=== PATIENT | male | born 1945 | race African-American/Black ===

== ENCOUNTER 2020-11-08 14:03 | Inpatient (IN) | payer MEDICARE ==
[2020-11-08 15:07] LABS: Hemoglobin 9.3 g/dL (13.5-17.5); Mean Corpuscular HGB CONC 31.8 g/dL (32.0-36.0); Mean Corpuscular Hemoglobin 29.2 pg (27.0-33.0); Mean Corpuscular Volume 91.8 fl (81.2-95.1); Mean Platelet Volume 8.9 fl (7.4-10.4); Platelet Count 282 10x3/uL (150-450); RBC Distribution Width 12.4 % (11.5-14.5); Red Blood Cell (RBC) Count 3.18 10x6/uL (4.32-5.72); White Blood Cell (WBC) Count 8.9 10x3/uL (3.5-10.5)
[2020-11-08 15:49] LABS: ALT (SGPT) 74 U/L (8-55); AST (SGOT) 53 U/L (5-34); Albumin 3.3 g/dL (3.4-4.8); Alkaline Phosphatase 75 U/L (40-110); Anion Gap 14 mmol/L (10-20); BUN (Urea Nitrogen) 35 mg/dL (8.4-25.7); Bilirubin, Total 0.3 mg/dL (0.2-1.2); CK (CPK) 597 U/L (30-200); Calc. Creatinine Clearance 0 mL/min (70-130); Calcium 8.7 mg/dL (7.8-10.44); Carbon Dioxide 23 mmol/L (23-31); Chloride 104 mmol/L (98-107); Globulin 3.6 g/dL (2.4-3.5); Glucose 113 mg/dL (83-110); Potassium 4.1 mmol/L (3.5-5.1); Protein, Total 6.9 g/dL (5.8-8.1); Sodium 137 mmol/L (136-145)
[2020-11-08 15:53] LABS: Bilirubin Neg (Negative); Blood, Urine 10 (Negative); Clarity Slightly Cloudy (Clear); Glucose, Urine (Dipstick) Normal (Negative); Ketone, Urine Negative (Negative); Leukocyte 100 (Negative); Nitrite Negative (Negative); Protein, Urine (Dipstick) 15 mg/dl (Neg-Trace); Specific Gravity, Urine 1.015 (1.002-1.036); Urobilinogen Normal mg/dL (Less than 2)
[2020-11-08 16:26] LABS: MDiff Complete? YES
[2020-11-08 16:38] LABS: Band 3 % (5-11); Lymphocytes 7 % (21-51); Monocytes 9 % (0-10); Neutrophil 80 % (42-75)
[2020-11-08 16:46] LABS: Bacteria/HPF 4+ HPF (None Seen); RBC/HPF 0-3 HPF (0-3); Squamous Epithelial 0-3 HPF (0-3)
[2020-11-08] MEDS ORDERED: cefTRIAXone\\ROCEPHIN 1 GM VIAL ONE (17:09)
[2020-11-08 17:18] LABS: Platelet Morphology Comment Appears Adequate
[2020-11-08 17:19] LABS: RBC Morphology Normal
[2020-11-08 18:07] LABS: Lactic Acid 1.3 mmol/L (0.5-2.2)
[2020-11-08] MEDS ORDERED: Ondansetron PF 4 MG/2 ML Vial IVP PRN (18:13)
[2020-11-08] MEDS ORDERED: Acetaminophen 325 MG TAB PO PRN (18:13)
[2020-11-08] MEDS ORDERED: Dextrose 5% in Water 1,000 ML IV PRN (18:15)
[2020-11-08] MEDS ORDERED: Dextrose 50% Abboject 50 ML SYRINGE SLOW IVP PRN (18:15)
[2020-11-08] MEDS ORDERED: Norepinephrine 8 MG/0.9% NS 250 ML ONE (18:56)
[2020-11-08 21:02] LABS: SARS-CoV-2 NAA Rapid Test Not Detected (NotDetected)
[2020-11-08] MEDS ORDERED: Furosemide 40 MG/4 ML VIAL ONE (21:03)
[2020-11-08] MEDS ORDERED: Vancomycin HCl 1.25 GM in Sodium Chloride 0.9% 250 ML 250 ML IVPB SCH (22:00)
[2020-11-08] MEDS ORDERED: Vancomycin HCl 500 MG VIAL ONE (22:20)
[2020-11-09] MEDS: Cefepime 1 GM in Sodium Chloride 0.9% 100 ML IVPB SCH ×2 (01:00→14:20)
[2020-11-09] MEDS: Sodium Chloride 0.9% 1,000 ML IV SCH ×5 (02:00→21:52)
[2020-11-09] MEDS ORDERED: Ziprasidone 20 MG VIAL IM SCH (04:45)
[2020-11-09 04:50] LABS: #Monocytes 0.7 10x3/uL (0.0-1.1); #Neutrophils 6.1 10x3/uL (1.5-8.4); %Basophils 0.5 % (0.0-2.0); %Eosinophils 0.3 % (0.0-6.0); %Lymphocytes 13.3 % (18.0-47.0); %Monocytes 8.9 % (0.0-10.0); %Neutrophils 76.7 % (40.0-75.0); Hemoglobin 9.2 g/dL (13.5-17.5); Mean Corpuscular HGB CONC 32.5 g/dL (32.0-36.0); Mean Corpuscular Hemoglobin 30.1 pg (27.0-33.0); Mean Corpuscular Volume 92.5 fl (81.2-95.1); Mean Platelet Volume 8.6 fl (7.4-10.4); Platelet Count 364 10x3/uL (150-450); RBC Distribution Width 12.4 % (11.5-14.5); Red Blood Cell (RBC) Count 3.06 10x6/uL (4.32-5.72); White Blood Cell (WBC) Count 7.9 10x3/uL (3.5-10.5)
[2020-11-09] MEDS ORDERED: Sterile Water 10 ML VIAL FS PRN (05:00)
[2020-11-09] MEDS ORDERED: Sterile Water 10 ML ONE (05:00)
[2020-11-09 05:06] LABS: ALT (SGPT) 104 U/L (8-55); AST (SGOT) 80 U/L (5-34); Albumin 3.3 g/dL (3.4-4.8); Alkaline Phosphatase 77 U/L (40-110); Anion Gap 15 mmol/L (10-20); BUN (Urea Nitrogen) 32 mg/dL (8.4-25.7); Bilirubin, Total 0.3 mg/dL (0.2-1.2); CK (CPK) 897 U/L (30-200); Calc. Creatinine Clearance 36 mL/min (70-130); Calcium 8.7 mg/dL (7.8-10.44); Carbon Dioxide 22 mmol/L (23-31); Chloride 106 mmol/L (98-107); Globulin 3.6 g/dL (2.4-3.5); Glucose 109 mg/dL (83-110); Potassium 4.1 mmol/L (3.5-5.1); Protein, Total 6.9 g/dL (5.8-8.1); Sodium 139 mmol/L (136-145)
[2020-11-10] MEDS: Cefepime 1 GM in Sodium Chloride 0.9% 100 ML IVPB SCH ×2 (01:55→12:15)
[2020-11-10] MEDS: Sodium Chloride 0.9% 1,000 ML IV SCH ×3 (04:50→22:03)
[2020-11-10] MEDS: Amiodarone 200 MG TAB PO SCH (22:03)
[2020-11-10] MEDS: Atorvastatin Calcium 40 MG TAB PO SCH (22:04)
[2020-11-10] MEDS: Brimonidine Tartrate 0.2% Ophth Soln 5 ml Bottle EA EYE SCH (22:04)
[2020-11-10] MEDS: Mirtazapine 15 MG TAB PO SCH (22:04)
[2020-11-10] MEDS: Timolol 0.5% Ophth Soln 5 ml Bottle EA EYE SCH (22:12)
[2020-11-11 05:26] LABS: #Neutrophils 8.5 10x3/uL (1.5-8.4); %Basophils 0.4 % (0.0-2.0); %Eosinophils 0.2 % (0.0-6.0); %Lymphocytes 10.9 % (18.0-47.0); %Monocytes 9.5 % (0.0-10.0); %Neutrophils 78.6 % (40.0-75.0); Hemoglobin 9.6 g/dL (13.5-17.5); Mean Corpuscular Hemoglobin 29.3 pg (27.0-33.0); Mean Corpuscular Volume 91.5 fl (81.2-95.1); Mean Platelet Volume 8.5 fl (7.4-10.4); Platelet Count 309 10x3/uL (150-450); RBC Distribution Width 12.2 % (11.5-14.5); Red Blood Cell (RBC) Count 3.28 10x6/uL (4.32-5.72); White Blood Cell (WBC) Count 10.8 10x3/uL (3.5-10.5)
[2020-11-11] MEDS: Sodium Chloride 0.9% 1,000 ML IV SCH ×4 (05:34→21:21)
[2020-11-11 05:43] LABS: ALT (SGPT) 102 U/L (8-55); AST (SGOT) 64 U/L (5-34); Alkaline Phosphatase 67 U/L (40-110); Anion Gap 13 mmol/L (10-20); BUN (Urea Nitrogen) 16 mg/dL (8.4-25.7); Bilirubin, Total 0.4 mg/dL (0.2-1.2); Calc. Creatinine Clearance 52 mL/min (70-130); Calcium 8.7 mg/dL (7.8-10.44); Carbon Dioxide 22 mmol/L (23-31); Chloride 110 mmol/L (98-107); Globulin 3.5 g/dL (2.4-3.5); Glucose 110 mg/dL (83-110); Potassium 3.8 mmol/L (3.5-5.1); Protein, Total 6.5 g/dL (5.8-8.1); Sodium 141 mmol/L (136-145)
[2020-11-11] MEDS: Brimonidine Tartrate 0.2% Ophth Soln 5 ml Bottle EA EYE SCH ×2 (08:30→21:22)
[2020-11-11] MEDS: Timolol 0.5% Ophth Soln 5 ml Bottle EA EYE SCH ×2 (08:31→20:37)
[2020-11-11] MEDS: Amiodarone 200 MG TAB PO SCH ×2 (08:42→20:36)
[2020-11-11] MEDS: OLANZapine 2.5 MG TAB PO SCH ×2 (08:42→20:37)
[2020-11-11] MEDS ORDERED: cefTRIAXone\\ROCEPHIN 1 GM in Sodium Chloride 0.9% 100 ML IVPB SCH (10:00)
[2020-11-11] MEDS: Acetaminophen 650 MG Suppository PR PRN (17:33)
[2020-11-11] MEDS: Rivaroxaban 10 MG TAB PO SCH (17:33)
[2020-11-11] MEDS: HumaLOG 300 UNITS/3 ML VIAL SC PRN (18:00)
[2020-11-11] MEDS ORDERED: Atorvastatin Calcium 40 MG TAB ONE (19:57)
[2020-11-11] MEDS: Mirtazapine 15 MG TAB PO SCH (20:35)
[2020-11-11] MEDS: Atorvastatin Calcium 40 MG TAB PO SCH (20:35)
[2020-11-12] MEDS ORDERED: hydrALAZINE 20 MG/ML VIAL SLOW IVP SCH (04:15)
[2020-11-12] MEDS: Sodium Chloride 0.9% 1,000 ML IV SCH (04:16)
[2020-11-12] MEDS: Acetaminophen 650 MG Suppository PR PRN (05:20)
[2020-11-12 05:54] LABS: #Monocytes 1.1 10x3/uL (0.0-1.1); #Neutrophils 12.1 10x3/uL (1.5-8.4); %Basophils 0.3 % (0.0-2.0); %Eosinophils 0.1 % (0.0-6.0); %Lymphocytes 8.2 % (18.0-47.0); %Monocytes 7.6 % (0.0-10.0); %Neutrophils 82.7 % (40.0-75.0); Hemoglobin 10.3 g/dL (13.5-17.5); Mean Corpuscular HGB CONC 32.5 g/dL (32.0-36.0); Mean Corpuscular Hemoglobin 29.4 pg (27.0-33.0); Mean Corpuscular Volume 90.6 fl (81.2-95.1); Mean Platelet Volume 9.6 fl (7.4-10.4); Platelet Count 253 10x3/uL (150-450); RBC Distribution Width 12.3 % (11.5-14.5); White Blood Cell (WBC) Count 14.6 10x3/uL (3.5-10.5)
[2020-11-12] MEDS: Amiodarone 200 MG TAB PO SCH ×2 (08:06→21:07)
[2020-11-12] MEDS: OLANZapine 2.5 MG TAB PO SCH ×2 (08:06→21:07)
[2020-11-12] MEDS: Brimonidine Tartrate 0.2% Ophth Soln 5 ml Bottle EA EYE SCH ×2 (08:07→21:05)
[2020-11-12] MEDS: Timolol 0.5% Ophth Soln 5 ml Bottle EA EYE SCH ×2 (08:07→21:06)
[2020-11-12] MEDS ORDERED: Haloperidol Lactate 5 MG/ML VIAL ONE (10:00)
[2020-11-12] MEDS ORDERED: Haloperidol Lactate 5 MG/ML VIAL SLOW IVP SCH (10:15)
[2020-11-12] MEDS: Cefepime 1 GM in Sodium Chloride 0.9% 100 ML IVPB SCH ×2 (12:18→21:07)
[2020-11-12] MEDS: Rivaroxaban 10 MG TAB PO SCH (17:46)
[2020-11-12] MEDS ORDERED: Cefepime 1 GM VIAL ONE (20:59)
[2020-11-12] MEDS ORDERED: Sodium Chloride 0.9% 100 ML ONE (20:59)
[2020-11-12] MEDS: Atorvastatin Calcium 40 MG TAB PO SCH (21:07)
[2020-11-12] MEDS: Mirtazapine 15 MG TAB PO SCH (21:07)
[2020-11-13 05:34] LABS: ALT (SGPT) 87 U/L (8-55); AST (SGOT) 62 U/L (5-34); Albumin 2.7 g/dL (3.4-4.8); Alkaline Phosphatase 70 U/L (40-110); Anion Gap 11 mmol/L (10-20); BUN (Urea Nitrogen) 12 mg/dL (8.4-25.7); Bilirubin, Total 0.5 mg/dL (0.2-1.2); Calc. Creatinine Clearance 68 mL/min (70-130); Calcium 8.6 mg/dL (7.8-10.44); Carbon Dioxide 25 mmol/L (23-31); Chloride 104 mmol/L (98-107); Globulin 3.6 g/dL (2.4-3.5); Glucose 137 mg/dL (83-110); Protein, Total 6.3 g/dL (5.8-8.1); Sodium 137 mmol/L (136-145)
[2020-11-13 05:35] LABS: #Monocytes 0.8 10x3/uL (0.0-1.1); %Basophils 0.2 % (0.0-2.0); %Lymphocytes 5.6 % (18.0-47.0); %Monocytes 6.8 % (0.0-10.0); %Neutrophils 86.8 % (40.0-75.0); Hemoglobin 8.8 g/dL (13.5-17.5); Mean Corpuscular HGB CONC 32.1 g/dL (32.0-36.0); Mean Corpuscular Hemoglobin 29.1 pg (27.0-33.0); Mean Corpuscular Volume 90.7 fl (81.2-95.1); Mean Platelet Volume 9.2 fl (7.4-10.4); Platelet Count 301 10x3/uL (150-450); RBC Distribution Width 12.2 % (11.5-14.5); Red Blood Cell (RBC) Count 3.02 10x6/uL (4.32-5.72); White Blood Cell (WBC) Count 11.5 10x3/uL (3.5-10.5)
[2020-11-13 05:38] LABS: Potassium 2.9 mmol/L (3.5-5.1)
[2020-11-13] MEDS ORDERED: Potassium Chloride 20 MEQ TAB PO SCH ×3 (06:00→18:45)
[2020-11-13] MEDS: Brimonidine Tartrate 0.2% Ophth Soln 5 ml Bottle EA EYE SCH ×2 (09:00→20:56)
[2020-11-13] MEDS: Timolol 0.5% Ophth Soln 5 ml Bottle EA EYE SCH ×2 (09:00→20:56)
[2020-11-13] MEDS: Cefepime 1 GM in Sodium Chloride 0.9% 100 ML IVPB SCH ×2 (09:45→20:35)
[2020-11-13 18:14] LABS: Anion Gap 12 mmol/L (10-20); BUN (Urea Nitrogen) 12 mg/dL (8.4-25.7); Calc. Creatinine Clearance 70 mL/min (70-130); Calcium 8.7 mg/dL (7.8-10.44); Carbon Dioxide 25 mmol/L (23-31); Chloride 106 mmol/L (98-107); Glucose 122 mg/dL (83-110); Magnesium 1.7 mg/dL (1.6-2.6); Potassium 3.4 mmol/L (3.5-5.1); Sodium 140 mmol/L (136-145)
[2020-11-13] MEDS ORDERED: Magnesium 2 GM/50 ML 2 GM in Premix Bag 1 BAG IVPB SCH (19:00)
[2020-11-13] MEDS: Amiodarone 200 MG TAB PO SCH ×2 (19:29→20:56)
[2020-11-13] MEDS: OLANZapine 2.5 MG TAB PO SCH ×2 (19:29→21:02)
[2020-11-13] MEDS: Rivaroxaban 10 MG TAB PO SCH (19:30)
[2020-11-13] MEDS: Atorvastatin Calcium 40 MG TAB PO SCH (20:56)
[2020-11-13] MEDS: Mirtazapine 15 MG TAB PO SCH (20:56)
[2020-11-14] MEDS: HumaLOG 300 UNITS/3 ML VIAL SC PRN (00:27)
[2020-11-14] MEDS ORDERED: Amlodipine 5 MG TAB PO SCH (04:30)
[2020-11-14 05:42] LABS: #Monocytes 0.8 10x3/uL (0.0-1.1); #Neutrophils 9.3 10x3/uL (1.5-8.4); %Basophils 0.2 % (0.0-2.0); %Eosinophils 0.2 % (0.0-6.0); %Lymphocytes 5.9 % (18.0-47.0); %Monocytes 7.7 % (0.0-10.0); %Neutrophils 85.2 % (40.0-75.0); Hemoglobin 9.1 g/dL (13.5-17.5); Mean Corpuscular HGB CONC 32.3 g/dL (32.0-36.0); Mean Corpuscular Hemoglobin 29.1 pg (27.0-33.0); Mean Corpuscular Volume 90.1 fl (81.2-95.1); Mean Platelet Volume 10.1 fl (7.4-10.4); Platelet Count 242 10x3/uL (150-450); RBC Distribution Width 12.2 % (11.5-14.5); Red Blood Cell (RBC) Count 3.13 10x6/uL (4.32-5.72); White Blood Cell (WBC) Count 10.9 10x3/uL (3.5-10.5)
[2020-11-14 06:00] LABS: ALT (SGPT) 103 U/L (8-55); AST (SGOT) 104 U/L (5-34); Albumin 2.8 g/dL (3.4-4.8); Alkaline Phosphatase 77 U/L (40-110); Anion Gap 16 mmol/L (10-20); BUN (Urea Nitrogen) 14 mg/dL (8.4-25.7); Bilirubin, Total 0.5 mg/dL (0.2-1.2); Calc. Creatinine Clearance 67 mL/min (70-130); Calcium 9.1 mg/dL (7.8-10.44); Carbon Dioxide 22 mmol/L (23-31); Chloride 106 mmol/L (98-107); Globulin 3.9 g/dL (2.4-3.5); Glucose 132 mg/dL (83-110); Magnesium 1.8 mg/dL (1.6-2.6); Potassium 3.7 mmol/L (3.5-5.1); Protein, Total 6.7 g/dL (5.8-8.1); Sodium 140 mmol/L (136-145)
[2020-11-14] MEDS ORDERED: Benzonatate 100 MG CAP PO PRN (07:56)
[2020-11-14] MEDS: Cefepime 1 GM in Sodium Chloride 0.9% 100 ML IVPB SCH ×2 (08:55→22:14)
[2020-11-14] MEDS: Timolol 0.5% Ophth Soln 5 ml Bottle EA EYE SCH ×2 (08:55→21:15)
[2020-11-14] MEDS ORDERED: Vancomycin HCl 1 GM in Sodium Chloride 0.9% 250 ML 250 ML IVPB SCH ×3 (11:45→22:00)
[2020-11-14] MEDS ORDERED: Azithromycin 500 MG in Sodium Chloride 0.9% 250 ML 250 ML IVPB SCH (12:00)
[2020-11-14] MEDS ORDERED: Furosemide 40 MG/4 ML VIAL SLOW IVP SCH (17:00)
[2020-11-14] MEDS: Amiodarone 200 MG TAB PO SCH ×2 (19:50→21:15)
[2020-11-14] MEDS: Brimonidine Tartrate 0.2% Ophth Soln 5 ml Bottle EA EYE SCH ×2 (19:50→21:15)
[2020-11-14] MEDS: OLANZapine 2.5 MG TAB PO SCH ×2 (19:51→21:15)
[2020-11-14] MEDS: Rivaroxaban 10 MG TAB PO SCH (19:52)
[2020-11-14] MEDS ORDERED: Atorvastatin Calcium 40 MG TAB ONE (20:44)
[2020-11-14] MEDS: Atorvastatin Calcium 40 MG TAB PO SCH (21:15)
[2020-11-14] MEDS: Mirtazapine 15 MG TAB PO SCH (21:15)
[2020-11-14] MEDS ORDERED: Vancomycin HCl 750 MG in Sodium Chloride 0.9% 250 ML 250 ML IVPB SCH (23:00)
[2020-11-15] MEDS: HumaLOG 300 UNITS/3 ML VIAL SC PRN (00:18)
[2020-11-15 05:36] LABS: SARS-CoV-2 PCR by NAA Not Detected (NotDetected)
[2020-11-15 06:47] LABS: #Monocytes 1.1 10x3/uL (0.0-1.1); #Neutrophils 8.7 10x3/uL (1.5-8.4); %Basophils 0.2 % (0.0-2.0); %Eosinophils 0.1 % (0.0-6.0); %Lymphocytes 9.9 % (18.0-47.0); %Monocytes 9.7 % (0.0-10.0); %Neutrophils 79.5 % (40.0-75.0); Hemoglobin 8.4 g/dL (13.5-17.5); Mean Corpuscular HGB CONC 32.2 g/dL (32.0-36.0); Mean Corpuscular Hemoglobin 29.4 pg (27.0-33.0); Mean Corpuscular Volume 91.3 fl (81.2-95.1); Mean Platelet Volume 8.9 fl (7.4-10.4); Platelet Count 310 10x3/uL (150-450); RBC Distribution Width 12.4 % (11.5-14.5); Red Blood Cell (RBC) Count 2.86 10x6/uL (4.32-5.72); White Blood Cell (WBC) Count 10.9 10x3/uL (3.5-10.5)
[2020-11-15 06:52] LABS: Anion Gap 15 mmol/L (10-20); BUN (Urea Nitrogen) 18 mg/dL (8.4-25.7); Calc. Creatinine Clearance 54 mL/min (70-130); Calcium 8.9 mg/dL (7.8-10.44); Carbon Dioxide 28 mmol/L (23-31); Chloride 105 mmol/L (98-107); Glucose 158 mg/dL (83-110); Magnesium 1.9 mg/dL (1.6-2.6); Sodium 145 mmol/L (136-145)
[2020-11-15 06:56] LABS: Potassium 2.7 mmol/L (3.5-5.1)
[2020-11-15] MEDS ORDERED: Potassium Chloride 20 MEQ TAB PO SCH (08:30)
[2020-11-15] MEDS: Cefepime 1 GM in Sodium Chloride 0.9% 100 ML IVPB SCH ×2 (08:48→22:51)
[2020-11-15] MEDS: OLANZapine 2.5 MG TAB PO SCH ×2 (08:48→21:39)
[2020-11-15] MEDS: Amiodarone 200 MG TAB PO SCH (08:49)
[2020-11-15] MEDS ORDERED: Furosemide 40 MG/4 ML VIAL ONE (09:28)
[2020-11-15] MEDS: Brimonidine Tartrate 0.2% Ophth Soln 5 ml Bottle EA EYE SCH ×2 (09:35→21:42)
[2020-11-15] MEDS: Timolol 0.5% Ophth Soln 5 ml Bottle EA EYE SCH ×2 (09:45→21:43)
[2020-11-15] MEDS ORDERED: Furosemide 40 MG/4 ML VIAL SLOW IVP SCH ×3 (10:00→21:00)
[2020-11-15] MEDS ORDERED: Vancomycin HCl 750 MG in Sodium Chloride 0.9% 250 ML 250 ML IVPB SCH ×2 (10:00→11:00)
[2020-11-15 12:42] LABS: Chloride 105 mmol/L (98-107); Sodium 146 mmol/L (136-145)
[2020-11-15 13:20] LABS: Anion Gap 17 mmol/L (10-20); BUN (Urea Nitrogen) 19 mg/dL (8.4-25.7); Calc. Creatinine Clearance 50 mL/min (70-130); Calcium 8.5 mg/dL (7.8-10.44); Carbon Dioxide 26 mmol/L (23-31); Glucose 199 mg/dL (83-110)
[2020-11-15] MEDS ORDERED: Potassium Chloride 20 MEQ/100 ML PREMIX BAG IVPB SCH (16:45)
[2020-11-15] MEDS: Rivaroxaban 10 MG TAB PO SCH (16:50)
[2020-11-15] MEDS: Vancomycin HCl 1 GM in Sodium Chloride 0.9% 250 ML 250 ML IVPB SCH (18:50)
[2020-11-15] MEDS ORDERED: Azithromycin 500 MG VIAL ONE (21:07)
[2020-11-15] MEDS: Azithromycin 500 MG in Sodium Chloride 0.9% 250 ML 250 ML IVPB SCH (21:22)
[2020-11-15] MEDS: Atorvastatin Calcium 40 MG TAB PO SCH (21:39)
[2020-11-15] MEDS: Mirtazapine 15 MG TAB PO SCH (21:39)
[2020-11-16 06:06] LABS: Hemoglobin 7.9 g/dL (13.5-17.5); Mean Corpuscular HGB CONC 33.1 g/dL (32.0-36.0); Mean Corpuscular Hemoglobin 29.6 pg (27.0-33.0); Mean Corpuscular Volume 89.5 fl (81.2-95.1); Mean Platelet Volume 8.9 fl (7.4-10.4); Platelet Count 287 10x3/uL (150-450); RBC Distribution Width 12.3 % (11.5-14.5); Red Blood Cell (RBC) Count 2.67 10x6/uL (4.32-5.72)
[2020-11-16 06:15] LABS: ALT (SGPT) 94 U/L (8-55); AST (SGOT) 79 U/L (5-34); Albumin 2.7 g/dL (3.4-4.8); Alkaline Phosphatase 74 U/L (40-110); Anion Gap 14 mmol/L (10-20); BUN (Urea Nitrogen) 18 mg/dL (8.4-25.7); Bilirubin, Total 0.5 mg/dL (0.2-1.2); Calc. Creatinine Clearance 50 mL/min (70-130); Calcium 8.9 mg/dL (7.8-10.44); Carbon Dioxide 36 mmol/L (23-31); Chloride 98 mmol/L (98-107); Globulin 3.9 g/dL (2.4-3.5); Glucose 152 mg/dL (83-110); Magnesium 1.7 mg/dL (1.6-2.6); Protein, Total 6.6 g/dL (5.8-8.1); Sodium 145 mmol/L (136-145)
[2020-11-16 06:19] LABS: Potassium 2.6 mmol/L (3.5-5.1)
[2020-11-16] MEDS ORDERED: Potassium Chloride 20 MEQ TAB PO SCH (06:45)
[2020-11-16 07:55] LABS: MDiff Complete? YES
[2020-11-16 07:58] LABS: Band 3 % (5-11); Lymphocytes 13 % (21-51); Monocytes 5 % (0-10); Neutrophil 78 % (42-75); Reactive Lymphocytes 1 % (0-10)
[2020-11-16 07:59] LABS: Platelet Morphology Comment Appears Adequate
[2020-11-16] MEDS: Potassium Chloride 20 MEQ in Premix Bag 1 BAG IVPB SCH ×4 (08:55→18:19)
[2020-11-16] MEDS: Timolol 0.5% Ophth Soln 5 ml Bottle EA EYE SCH ×2 (08:55→21:40)
[2020-11-16] MEDS: Brimonidine Tartrate 0.2% Ophth Soln 5 ml Bottle EA EYE SCH ×2 (08:56→21:15)
[2020-11-16] MEDS: Cefepime 1 GM in Sodium Chloride 0.9% 100 ML IVPB SCH ×2 (08:57→23:31)
[2020-11-16] MEDS: Vancomycin HCl 1 GM in Sodium Chloride 0.9% 250 ML 250 ML IVPB SCH (09:18)
[2020-11-16] MEDS: OLANZapine 2.5 MG TAB PO SCH ×2 (10:30→21:09)
[2020-11-16 15:19] LABS: Anion Gap 13 mmol/L (10-20); BUN (Urea Nitrogen) 23 mg/dL (8.4-25.7); Calc. Creatinine Clearance 47 mL/min (70-130); Calcium 8.5 mg/dL (7.8-10.44); Carbon Dioxide 34 mmol/L (23-31); Chloride 99 mmol/L (98-107); Glucose 208 mg/dL (83-110); Magnesium 1.7 mg/dL (1.6-2.6); Sodium 143 mmol/L (136-145)
[2020-11-16 15:21] LABS: Potassium 2.9 mmol/L (3.5-5.1)
[2020-11-16] MEDS ORDERED: Furosemide 100 MG/10 ML VIAL SLOW IVP SCH (20:00)
[2020-11-16] MEDS: Atorvastatin Calcium 40 MG TAB PO SCH (21:09)
[2020-11-16] MEDS: Mirtazapine 15 MG TAB PO SCH (21:09)
[2020-11-16] MEDS: Azithromycin 500 MG in Sodium Chloride 0.9% 250 ML 250 ML IVPB SCH (21:14)
[2020-11-17] MEDS: Vancomycin HCl 1 GM in Sodium Chloride 0.9% 250 ML 250 ML IVPB SCH ×2 (04:27→17:29)
[2020-11-17 05:49] LABS: Vancomycin, Trough 10.2 ug/mL
[2020-11-17 05:50] LABS: Anion Gap 15 mmol/L (10-20); BUN (Urea Nitrogen) 23 mg/dL (8.4-25.7); Calc. Creatinine Clearance 51 mL/min (70-130); Carbon Dioxide 34 mmol/L (23-31); Chloride 98 mmol/L (98-107); Glucose 183 mg/dL (83-110); Magnesium 1.8 mg/dL (1.6-2.6); Phosphorus 2.3 mg/dL (2.3-4.7); Sodium 144 mmol/L (136-145)
[2020-11-17 06:02] LABS: Potassium 2.8 mmol/L (3.5-5.1)
[2020-11-17 06:11] LABS: Hemoglobin 7.5 g/dL (13.5-17.5); Mean Corpuscular HGB CONC 32.1 g/dL (32.0-36.0); Mean Corpuscular Hemoglobin 28.8 pg (27.0-33.0); Mean Platelet Volume 9.1 fl (7.4-10.4); Platelet Count 300 10x3/uL (150-450); RBC Distribution Width 12.3 % (11.5-14.5); White Blood Cell (WBC) Count 9.9 10x3/uL (3.5-10.5)
[2020-11-17] MEDS ORDERED: Potassium Chloride 20 MEQ TAB PO SCH (06:15)
[2020-11-17] MEDS ORDERED: Potassium Bicarbonate/Cit Ac 20 MEQ TAB PO SCH ×2 (07:45→17:00)
[2020-11-17 08:11] LABS: MDiff Complete? YES
[2020-11-17 08:14] LABS: Band 1 % (5-11); Lymphocytes 5 % (21-51); Monocytes 4 % (0-10); Neutrophil 90 % (42-75)
[2020-11-17 08:15] LABS: Platelet Morphology Comment Appears Adequate
[2020-11-17 08:16] LABS: RBC Morphology Normal
[2020-11-17] MEDS: Cefepime 1 GM in Sodium Chloride 0.9% 100 ML IVPB SCH ×2 (08:21→22:22)
[2020-11-17] MEDS: Timolol 0.5% Ophth Soln 5 ml Bottle EA EYE SCH ×2 (08:22→22:28)
[2020-11-17] MEDS: Brimonidine Tartrate 0.2% Ophth Soln 5 ml Bottle EA EYE SCH ×2 (08:22→22:28)
[2020-11-17] MEDS: OLANZapine 2.5 MG TAB PO SCH ×2 (08:23→22:23)
[2020-11-17] MEDS ORDERED: Sodium Bicarbonate 2.5 MEQ/5 ML VIAL ONE (10:30)
[2020-11-17] MEDS ORDERED: Lidocaine 1% PF 5 ML VIAL ONE (10:30)
[2020-11-17] MEDS: Potassium Bicarbonate/Cit Ac 20 MEQ TAB PO SCH (17:29)
[2020-11-17] MEDS: Azithromycin 500 MG in Sodium Chloride 0.9% 250 ML 250 ML IVPB SCH (21:04)
[2020-11-17 22:06] LABS: Anion Gap 9 mmol/L (10-20); BUN (Urea Nitrogen) 30 mg/dL (8.4-25.7); Calc. Creatinine Clearance 47 mL/min (70-130); Calcium 8.5 mg/dL (7.8-10.44); Carbon Dioxide 37 mmol/L (23-31); Chloride 99 mmol/L (98-107); Glucose 170 mg/dL (83-110); Potassium 3.3 mmol/L (3.5-5.1); Sodium 142 mmol/L (136-145)
[2020-11-17] MEDS: Atorvastatin Calcium 40 MG TAB PO SCH (22:22)
[2020-11-17] MEDS: Mirtazapine 15 MG TAB PO SCH (22:24)
[2020-11-18] MEDS ORDERED: Potassium Chloride 20 MEQ TAB PO SCH (00:15)
[2020-11-18] MEDS ORDERED: Furosemide 40 MG/4 ML VIAL SLOW IVP SCH ×2 (00:15→13:30)
[2020-11-18] MEDS: HumaLOG 300 UNITS/3 ML VIAL SC PRN ×4 (00:46→23:57)
[2020-11-18] MEDS: Vancomycin HCl 1 GM in Sodium Chloride 0.9% 250 ML 250 ML IVPB SCH (05:17)
[2020-11-18] MEDS: OLANZapine 2.5 MG TAB PO SCH ×2 (08:13→21:09)
[2020-11-18] MEDS: Cefepime 1 GM in Sodium Chloride 0.9% 100 ML IVPB SCH (08:14)
[2020-11-18] MEDS: Timolol 0.5% Ophth Soln 5 ml Bottle EA EYE SCH ×2 (08:14→21:09)
[2020-11-18] MEDS: Potassium Bicarbonate/Cit Ac 20 MEQ TAB PO SCH ×2 (08:14→15:35)
[2020-11-18] MEDS: Brimonidine Tartrate 0.2% Ophth Soln 5 ml Bottle EA EYE SCH ×2 (08:14→21:08)
[2020-11-18 09:04] LABS: #Monocytes 0.5 10x3/uL (0.0-1.1); #Neutrophils 6.8 10x3/uL (1.5-8.4); %Basophils 0.1 % (0.0-2.0); %Eosinophils 0.5 % (0.0-6.0); %Monocytes 5.5 % (0.0-10.0); %Neutrophils 82.9 % (40.0-75.0); Hemoglobin 6.8 g/dL (13.5-17.5); Mean Corpuscular HGB CONC 31.5 g/dL (32.0-36.0); Mean Corpuscular Hemoglobin 29.2 pg (27.0-33.0); Mean Corpuscular Volume 92.7 fl (81.2-95.1); Mean Platelet Volume 8.8 fl (7.4-10.4); Platelet Count 317 10x3/uL (150-450); RBC Distribution Width 12.5 % (11.5-14.5); Red Blood Cell (RBC) Count 2.33 10x6/uL (4.32-5.72); White Blood Cell (WBC) Count 8.2 10x3/uL (3.5-10.5)
[2020-11-18 09:27] LABS: Anion Gap 11 mmol/L (10-20); Globulin 3.7 g/dL (2.4-3.5)
[2020-11-18 09:30] LABS: ALT (SGPT) 83 U/L (8-55); AST (SGOT) 106 U/L (5-34); Albumin 2.4 g/dL (3.4-4.8); Alkaline Phosphatase 67 U/L (40-110); BUN (Urea Nitrogen) 36 mg/dL (8.4-25.7); Bilirubin, Total 0.3 mg/dL (0.2-1.2); Calc. Creatinine Clearance 0 mL/min (70-130); Calcium 8.6 mg/dL (7.8-10.44); Carbon Dioxide 36 mmol/L (23-31); Chloride 102 mmol/L (98-107); Glucose 91 mg/dL (83-110); Phosphorus 1.7 mg/dL (2.3-4.7); Potassium 3.4 mmol/L (3.5-5.1); Protein, Total 6.1 g/dL (5.8-8.1); Sodium 146 mmol/L (136-145)
[2020-11-18] MEDS: Azithromycin 250 MG TAB PO SCH (11:18)
[2020-11-18] MEDS ORDERED: Potassium Phosphate 15 MMOL in Sodium Chloride 0.9% 250 ML 250 ML IVPB SCH (15:00)
[2020-11-18] MEDS: Mirtazapine 15 MG TAB PO SCH (21:08)
[2020-11-18] MEDS: Atorvastatin Calcium 40 MG TAB PO SCH (21:08)
[2020-11-19 07:16] LABS: #Eosinphils 0.1 10x3/uL (0.0-0.5); #Monocytes 0.4 10x3/uL (0.0-1.1); #Neutrophils 6.4 10x3/uL (1.5-8.4); %Basophils 0.3 % (0.0-2.0); %Lymphocytes 12.4 % (18.0-47.0); %Monocytes 4.7 % (0.0-10.0); %Neutrophils 80.8 % (40.0-75.0); Hemoglobin 7.4 g/dL (13.5-17.5); Mean Corpuscular HGB CONC 31.6 g/dL (32.0-36.0); Mean Corpuscular Hemoglobin 29.2 pg (27.0-33.0); Mean Corpuscular Volume 92.5 fl (81.2-95.1); Mean Platelet Volume 9.2 fl (7.4-10.4); Platelet Count 332 10x3/uL (150-450); RBC Distribution Width 12.3 % (11.5-14.5); Red Blood Cell (RBC) Count 2.53 10x6/uL (4.32-5.72); White Blood Cell (WBC) Count 7.9 10x3/uL (3.5-10.5)
[2020-11-19 07:42] LABS: ALT (SGPT) 95 U/L (8-55); AST (SGOT) 115 U/L (5-34); Albumin 2.5 g/dL (3.4-4.8); Alkaline Phosphatase 83 U/L (40-110); Anion Gap 18 mmol/L (10-20); BUN (Urea Nitrogen) 32 mg/dL (8.4-25.7); Bilirubin, Total 0.3 mg/dL (0.2-1.2); CRP (Inflammatory) 19.38 mg/dL (= or < 0.5); Calc. Creatinine Clearance 0 mL/min (70-130); Calcium 8.7 mg/dL (7.8-10.44); Carbon Dioxide 30 mmol/L (23-31); Chloride 101 mmol/L (98-107); Globulin 3.7 g/dL (2.4-3.5); Glucose 143 mg/dL (83-110); Potassium 4.5 mmol/L (3.5-5.1); Protein, Total 6.2 g/dL (5.8-8.1); Sodium 144 mmol/L (136-145)
[2020-11-19] MEDS: Brimonidine Tartrate 0.2% Ophth Soln 5 ml Bottle EA EYE SCH ×2 (07:51→20:42)
[2020-11-19] MEDS: Azithromycin 250 MG TAB PO SCH (07:51)
[2020-11-19] MEDS: OLANZapine 2.5 MG TAB PO SCH ×2 (07:51→20:48)
[2020-11-19] MEDS: Timolol 0.5% Ophth Soln 5 ml Bottle EA EYE SCH ×2 (07:52→20:42)
[2020-11-19 08:31] LABS: Phosphorus 1.7 mg/dL (2.3-4.7)
[2020-11-19] MEDS: Furosemide 40 MG/4 ML VIAL SLOW IVP SCH ×2 (11:08→14:17)
[2020-11-19] MEDS ORDERED: Potassium Phosphate 30 MMOL in Sodium Chloride 0.9% 250 ML 250 ML IVPB SCH (12:45)
[2020-11-19] MEDS ORDERED: Lorazepam 2 MG/ML VIAL SLOW IVP PRN (16:24)
[2020-11-19] MEDS: Atorvastatin Calcium 40 MG TAB PO SCH (20:48)
[2020-11-19] MEDS: Mirtazapine 15 MG TAB PO SCH (20:48)
[2020-11-19] MEDS: HumaLOG 300 UNITS/3 ML VIAL SC PRN (23:31)
[2020-11-20 06:57] LABS: #Eosinphils 0.1 10x3/uL (0.0-0.5); #Monocytes 0.4 10x3/uL (0.0-1.1); #Neutrophils 5.9 10x3/uL (1.5-8.4); %Basophils 0.4 % (0.0-2.0); %Eosinophils 1.5 % (0.0-6.0); %Lymphocytes 10.9 % (18.0-47.0); %Monocytes 5.7 % (0.0-10.0); %Neutrophils 80.8 % (40.0-75.0); Hemoglobin 8.8 g/dL (13.5-17.5); Mean Corpuscular HGB CONC 31.4 g/dL (32.0-36.0); Mean Corpuscular Hemoglobin 28.9 pg (27.0-33.0); Mean Corpuscular Volume 91.8 fl (81.2-95.1); Mean Platelet Volume 9.6 fl (7.4-10.4); Platelet Count 358 10x3/uL (150-450); RBC Distribution Width 12.4 % (11.5-14.5); Red Blood Cell (RBC) Count 3.05 10x6/uL (4.32-5.72); White Blood Cell (WBC) Count 7.3 10x3/uL (3.5-10.5)
[2020-11-20 07:16] LABS: Anion Gap 17 mmol/L (10-20)
[2020-11-20 07:20] LABS: BUN (Urea Nitrogen) 28 mg/dL (8.4-25.7); Calc. Creatinine Clearance 0 mL/min (70-130); Carbon Dioxide 31 mmol/L (23-31); Chloride 102 mmol/L (98-107); Glucose 102 mg/dL (83-110); Magnesium 2.2 mg/dL (1.6-2.6); Phosphorus 3.8 mg/dL (2.3-4.7); Potassium 4.4 mmol/L (3.5-5.1); Sodium 146 mmol/L (136-145)
[2020-11-20] MEDS ORDERED: Furosemide 20 MG/2 ML VIAL SLOW IVP SCH (14:15)
[2020-11-20] MEDS: Mirtazapine 15 MG TAB PO SCH (20:27)
[2020-11-20] MEDS: Atorvastatin Calcium 40 MG TAB PO SCH (20:27)
[2020-11-20] MEDS: OLANZapine 2.5 MG TAB PO SCH (20:28)
[2020-11-20] MEDS: Timolol 0.5% Ophth Soln 5 ml Bottle EA EYE SCH (20:32)
[2020-11-20] MEDS: Brimonidine Tartrate 0.2% Ophth Soln 5 ml Bottle EA EYE SCH (20:32)
[2020-11-21] MEDS: HumaLOG 300 UNITS/3 ML VIAL SC PRN (00:55)
[2020-11-21 06:57] LABS: #Eosinphils 0.1 10x3/uL (0.0-0.5); #Monocytes 0.3 10x3/uL (0.0-1.1); #Neutrophils 4.3 10x3/uL (1.5-8.4); %Basophils 0.2 % (0.0-2.0); %Eosinophils 1.8 % (0.0-6.0); %Lymphocytes 13.8 % (18.0-47.0); %Monocytes 6.1 % (0.0-10.0); %Neutrophils 77.6 % (40.0-75.0); Hemoglobin 8.6 g/dL (13.5-17.5); Mean Corpuscular HGB CONC 31.5 g/dL (32.0-36.0); Mean Corpuscular Hemoglobin 29.3 pg (27.0-33.0); Mean Corpuscular Volume 92.9 fl (81.2-95.1); Platelet Count 347 10x3/uL (150-450); RBC Distribution Width 12.1 % (11.5-14.5); Red Blood Cell (RBC) Count 2.94 10x6/uL (4.32-5.72); White Blood Cell (WBC) Count 5.6 10x3/uL (3.5-10.5)
[2020-11-21 07:13] LABS: ALT (SGPT) 69 U/L (8-55); AST (SGOT) 52 U/L (5-34); Albumin 2.4 g/dL (3.4-4.8); Alkaline Phosphatase 78 U/L (40-110); Anion Gap 11 mmol/L (10-20); BUN (Urea Nitrogen) 22 mg/dL (8.4-25.7); Bilirubin, Total 0.3 mg/dL (0.2-1.2); Calc. Creatinine Clearance 0 mL/min (70-130); Calcium 8.5 mg/dL (7.8-10.44); Carbon Dioxide 33 mmol/L (23-31); Chloride 102 mmol/L (98-107); Globulin 3.8 g/dL (2.4-3.5); Glucose 94 mg/dL (83-110); Potassium 3.8 mmol/L (3.5-5.1); Protein, Total 6.2 g/dL (5.8-8.1); Sodium 142 mmol/L (136-145)
[2020-11-21] MEDS: Azithromycin 250 MG TAB PO SCH (09:26)
[2020-11-21] MEDS: Brimonidine Tartrate 0.2% Ophth Soln 5 ml Bottle EA EYE SCH ×3 (09:26→20:21)
[2020-11-21] MEDS: OLANZapine 2.5 MG TAB PO SCH ×3 (09:27→20:20)
[2020-11-21] MEDS: Furosemide 40 MG/4 ML VIAL SLOW IVP SCH (09:27)
[2020-11-21] MEDS: Timolol 0.5% Ophth Soln 5 ml Bottle EA EYE SCH ×3 (09:27→20:21)
[2020-11-21] MEDS ORDERED: Furosemide 40 MG/4 ML VIAL SLOW IVP SCH (17:00)
[2020-11-21] MEDS: Atorvastatin Calcium 40 MG TAB PO SCH (20:20)
[2020-11-21] MEDS: Mirtazapine 15 MG TAB PO SCH (20:20)
[2020-11-22 05:57] LABS: #Eosinphils 0.1 10x3/uL (0.0-0.5); #Monocytes 0.4 10x3/uL (0.0-1.1); #Neutrophils 4.7 10x3/uL (1.5-8.4); %Basophils 0.3 % (0.0-2.0); %Eosinophils 1.4 % (0.0-6.0); %Lymphocytes 15.8 % (18.0-47.0); %Monocytes 6.9 % (0.0-10.0); Hemoglobin 7.5 g/dL (13.5-17.5); Mean Corpuscular HGB CONC 31.9 g/dL (32.0-36.0); Mean Corpuscular Hemoglobin 29.3 pg (27.0-33.0); Mean Corpuscular Volume 91.8 fl (81.2-95.1); Mean Platelet Volume 9.2 fl (7.4-10.4); Platelet Count 404 10x3/uL (150-450); RBC Distribution Width 12.1 % (11.5-14.5); Red Blood Cell (RBC) Count 2.56 10x6/uL (4.32-5.72); White Blood Cell (WBC) Count 6.2 10x3/uL (3.5-10.5)
[2020-11-22 06:11] LABS: ALT (SGPT) 62 U/L (8-55); AST (SGOT) 45 U/L (5-34); Albumin 2.5 g/dL (3.4-4.8); Alkaline Phosphatase 84 U/L (40-110); Anion Gap 13 mmol/L (10-20); BUN (Urea Nitrogen) 22 mg/dL (8.4-25.7); Bilirubin, Total 0.4 mg/dL (0.2-1.2); Calc. Creatinine Clearance 0 mL/min (70-130); Calcium 8.6 mg/dL (7.8-10.44); Carbon Dioxide 32 mmol/L (23-31); Chloride 100 mmol/L (98-107); Globulin 3.9 g/dL (2.4-3.5); Glucose 133 mg/dL (83-110); Potassium 3.7 mmol/L (3.5-5.1); Protein, Total 6.4 g/dL (5.8-8.1); Sodium 141 mmol/L (136-145)
[2020-11-22] MEDS ORDERED: Furosemide 40 MG/4 ML VIAL SLOW IVP SCH ×2 (08:30→17:00)
[2020-11-22] MEDS: OLANZapine 2.5 MG TAB PO SCH ×2 (08:37→19:58)
[2020-11-22] MEDS: Brimonidine Tartrate 0.2% Ophth Soln 5 ml Bottle EA EYE SCH ×2 (08:37→19:57)
[2020-11-22] MEDS: Timolol 0.5% Ophth Soln 5 ml Bottle EA EYE SCH ×2 (08:37→19:57)
[2020-11-22] MEDS: Furosemide 40 MG/4 ML VIAL SLOW IVP SCH (08:48)
[2020-11-22] MEDS ORDERED: Lorazepam 2 MG/ML VIAL SLOW IVP PRN (11:15)
[2020-11-22] MEDS ORDERED: Rivaroxaban 10 MG TAB PO SCH (18:00)
[2020-11-22] MEDS: Atorvastatin Calcium 40 MG TAB PO SCH (19:58)
[2020-11-22] MEDS: Mirtazapine 15 MG TAB PO SCH (19:58)
[2020-11-22] MEDS: Rivaroxaban 10 MG TAB PO SCH (19:59)
[2020-11-23] MEDS: HumaLOG 300 UNITS/3 ML VIAL SC PRN ×3 (00:29→17:51)
[2020-11-23 05:42] LABS: #Eosinphils 0.1 10x3/uL (0.0-0.5); #Monocytes 0.5 10x3/uL (0.0-1.1); #Neutrophils 4.3 10x3/uL (1.5-8.4); %Basophils 0.5 % (0.0-2.0); %Eosinophils 1.5 % (0.0-6.0); %Lymphocytes 17.7 % (18.0-47.0); %Neutrophils 71.5 % (40.0-75.0); Mean Corpuscular HGB CONC 31.5 g/dL (32.0-36.0); Mean Corpuscular Hemoglobin 28.3 pg (27.0-33.0); Mean Corpuscular Volume 89.9 fl (81.2-95.1); Mean Platelet Volume 9.2 fl (7.4-10.4); Platelet Count 406 10x3/uL (150-450); RBC Distribution Width 12.2 % (11.5-14.5); Red Blood Cell (RBC) Count 2.47 10x6/uL (4.32-5.72)
[2020-11-23 05:56] LABS: Anion Gap 13 mmol/L (10-20); BUN (Urea Nitrogen) 22 mg/dL (8.4-25.7); Calc. Creatinine Clearance 56 mL/min (70-130); Calcium 8.1 mg/dL (7.8-10.44); Carbon Dioxide 32 mmol/L (23-31); Chloride 101 mmol/L (98-107); Glucose 121 mg/dL (83-110); Magnesium 2.2 mg/dL (1.6-2.6); Potassium 3.9 mmol/L (3.5-5.1); Sodium 142 mmol/L (136-145)
[2020-11-23] MEDS: Furosemide 40 MG/4 ML VIAL SLOW IVP SCH (08:26)
[2020-11-23] MEDS: OLANZapine 2.5 MG TAB PO SCH ×2 (08:26→21:37)
[2020-11-23] MEDS: Brimonidine Tartrate 0.2% Ophth Soln 5 ml Bottle EA EYE SCH ×2 (08:26→21:13)
[2020-11-23] MEDS: Timolol 0.5% Ophth Soln 5 ml Bottle EA EYE SCH ×2 (08:26→21:13)
[2020-11-23 12:18] VITALS: BMI 21.3
[2020-11-23] MEDS: Rivaroxaban 10 MG TAB PO SCH (21:37)
[2020-11-23] MEDS: Mirtazapine 15 MG TAB PO SCH (21:37)
[2020-11-23] MEDS: Atorvastatin Calcium 40 MG TAB PO SCH (21:37)
[2020-11-24] MEDS: OLANZapine 2.5 MG TAB PO SCH (08:33)
[2020-11-24] MEDS ORDERED: Furosemide 40 MG TAB PO SCH (09:00)
[2020-11-24] MEDS: Timolol 0.5% Ophth Soln 5 ml Bottle EA EYE SCH (12:14)
[2020-11-24] MEDS: Brimonidine Tartrate 0.2% Ophth Soln 5 ml Bottle EA EYE SCH (12:14)
[2020-11-24 13:17] VITALS: BP 117/58; TEMP 98.4
== END 2020-11-24 13:35 | DRG 689 ==
LOC: CSHERS 14:03 → CSHICU 23:23 → CSHTELE 11-09 20:54
PROVIDERS: ADMIT Family Medicine; ATTEND Family Medicine
PROC: 02HV33Z Insertion of Infusion Device into Superior Vena Cava, Percutaneous Approach (ICD-10-PCS; principal; 2020-11-08)
PROC: 3E033XZ Introduction of Vasopressor into Peripheral Vein, Percutaneous Approach (ICD-10-PCS; 2020-11-08)
PROC: 5A09357 Assistance with Respiratory Ventilation, Less than 24 Consecutive Hours, Continuous Positive Airway Pressure (ICD-10-PCS; 2020-11-16)
DX: N39.0 Urinary tract infection, site not specified (principal); J96.01 Acute respiratory failure with hypoxia; J18.9 Pneumonia, unspecified organism; I50.31 Acute diastolic (congestive) heart failure; N17.9 Acute kidney failure, unspecified; I69.951 Hemiplegia and hemiparesis following unspecified cerebrovascular disease affecting right dominant side; E87.0 Hyperosmolality and hypernatremia; I48.20 Chronic atrial fibrillation, unspecified; F03.91 Unspecified dementia, unspecified severity, with behavioral disturbance; Z20.822 Contact with and (suspected) exposure to COVID-19; Z66 Do not resuscitate; Z79.01 Long term (current) use of anticoagulants; Z79.84 Long term (current) use of oral hypoglycemic drugs; Z79.899 Other long term (current) drug therapy; Z95.0 Presence of cardiac pacemaker; E78.5 Hyperlipidemia, unspecified; E86.0 Dehydration; I95.9 Hypotension, unspecified; R40.4 Transient alteration of awareness; B96.1 Klebsiella pneumoniae [K. pneumoniae] as the cause of diseases classified elsewhere; E87.6 Hypokalemia; D64.9 Anemia, unspecified; E11.22 Type 2 diabetes mellitus with diabetic chronic kidney disease; N18.9 Chronic kidney disease, unspecified
CPT/HCPCS: 0240U; 36415; 36416; 36556; 36569; 51701; 70450; 71045; 80048; 80053; 80202; 81003; 81015; 82550; 82553; 82728; 83605; 83615; 83735; 83880; 84100; 84145; 84484; 85025; 86140; 87040; 87077; 87086; 87186; 87324; 87449; 87635; 93005; 93306; 94640; 94660; 94760; 96365; 96366; 96367; 96368; 96375; C1751; J0360; J0456; J0692; J0696; J1630; J1815; J1940; J2060; J3370; J3480; J3486; J3490; J7050; U0003; U0005

== ENCOUNTER 2020-12-27 19:08 | Inpatient (IN) | payer MEDICARE, MEDICAID ==
[2020-12-27 20:30] LABS: #Eosinphils 0.1 10x3/uL (0.0-0.5); #Monocytes 1.1 10x3/uL (0.0-1.1); #Neutrophils 7.4 10x3/uL (1.5-8.4); %Basophils 0.3 % (0.0-2.0); %Eosinophils 0.5 % (0.0-6.0); %Lymphocytes 13.8 % (18.0-47.0); %Monocytes 11.1 % (0.0-10.0); %Neutrophils 73.6 % (40.0-75.0); Hemoglobin 8.4 g/dL (13.5-17.5); Mean Corpuscular HGB CONC 31.9 g/dL (32.0-36.0); Mean Corpuscular Hemoglobin 29.1 pg (27.0-33.0); Platelet Count 303 10x3/uL (150-450); RBC Distribution Width 15.3 % (11.5-14.5); Red Blood Cell (RBC) Count 2.89 10x6/uL (4.32-5.72); White Blood Cell (WBC) Count 10.1 10x3/uL (3.5-10.5)
[2020-12-27 20:38] LABS: SARS-CoV-2 NAA Rapid Test Not Detected (NotDetected)
[2020-12-27 20:44] LABS: ALT (SGPT) 30 U/L (8-55); AST (SGOT) 25 U/L (5-34); Albumin 3.3 g/dL (3.4-4.8); Alkaline Phosphatase 80 U/L (40-110); Anion Gap 16 mmol/L (10-20); BUN (Urea Nitrogen) 36 mg/dL (8.4-25.7); Bilirubin, Total 0.3 mg/dL (0.2-1.2); Calc. Creatinine Clearance 0 mL/min (70-130); Carbon Dioxide 20 mmol/L (23-31); Chloride 102 mmol/L (98-107); Globulin 4.4 g/dL (2.4-3.5); Glucose 152 mg/dL (83-110); Potassium 4.2 mmol/L (3.5-5.1); Protein, Total 7.7 g/dL (5.8-8.1); Sodium 134 mmol/L (136-145)
[2020-12-27] MEDS ORDERED: cefTRIAXone\\ROCEPHIN 1 GM VIAL ONE (21:00)
[2020-12-27] MEDS ORDERED: Dextrose 5% in Water 1,000 ML IV PRN (22:02)
[2020-12-27] MEDS ORDERED: HumaLOG 300 UNITS/3 ML VIAL SC PRN (22:02)
[2020-12-27] MEDS ORDERED: Acetaminophen 650 MG Suppository PR PRN (22:02)
[2020-12-27] MEDS ORDERED: Dextrose 50% Abboject 50 ML SYRINGE SLOW IVP PRN (22:02)
[2020-12-27] MEDS ORDERED: Ondansetron PF 4 MG/2 ML Vial IVP PRN (22:02)
[2020-12-27] MEDS ORDERED: Vancomycin 1 GM in Premix Bag 1 BAG IVPB SCH (22:15)
[2020-12-27 23:38] LABS: Lactic Acid 0.9 mmol/L (0.5-2.2)
[2020-12-28] MEDS ORDERED: Piperacillin/Tazobactam 3.375 GM VIAL ONE (02:55)
[2020-12-28] MEDS: Piperacillin/Tazobactam 3.375 GM in Sodium Chloride 0.9% 100 ML IVPB SCH ×4 (03:03→21:15)
[2020-12-28 03:28] VITALS: BMI 22.9
[2020-12-28 11:15] LABS: #Eosinphils 0.1 10x3/uL (0.0-0.5); #Monocytes 0.9 10x3/uL (0.0-1.1); #Neutrophils 6.9 10x3/uL (1.5-8.4); %Basophils 0.4 % (0.0-2.0); %Eosinophils 0.5 % (0.0-6.0); %Lymphocytes 16.8 % (18.0-47.0); %Monocytes 9.7 % (0.0-10.0); Hemoglobin 8.1 g/dL (13.5-17.5); Mean Corpuscular HGB CONC 31.5 g/dL (32.0-36.0); Mean Corpuscular Hemoglobin 28.3 pg (27.0-33.0); Mean Corpuscular Volume 89.9 fl (81.2-95.1); Mean Platelet Volume 8.5 fl (7.4-10.4); Platelet Count 297 10x3/uL (150-450); RBC Distribution Width 15.4 % (11.5-14.5); Red Blood Cell (RBC) Count 2.86 10x6/uL (4.32-5.72); White Blood Cell (WBC) Count 9.6 10x3/uL (3.5-10.5)
[2020-12-28 11:23] LABS: Lactic Acid 1.9 mmol/L (0.5-2.2)
[2020-12-28 11:26] LABS: Anion Gap 16 mmol/L (10-20); BUN (Urea Nitrogen) 29 mg/dL (8.4-25.7); Calc. Creatinine Clearance 58 mL/min (70-130); Calcium 9.2 mg/dL (7.8-10.44); Carbon Dioxide 19 mmol/L (23-31); Chloride 106 mmol/L (98-107); Glucose 106 mg/dL (83-110); Potassium 4.1 mmol/L (3.5-5.1); Sodium 137 mmol/L (136-145)
[2020-12-28] MEDS: Timolol 0.5% Ophth Soln 5 ml Bottle EA EYE SCH ×2 (11:47→21:21)
[2020-12-28] MEDS: Famotidine/PF 20 mg/2ml Vial SLOW IVP SCH ×2 (11:48→21:21)
[2020-12-28] MEDS: Enoxaparin Sodium 80 MG/0.8 ML SYRINGE SC SCH ×2 (11:48→21:21)
[2020-12-28] MEDS: Brimonidine Tartrate 0.2% Ophth Soln 5 ml Bottle EA EYE SCH ×2 (11:48→21:13)
[2020-12-28] MEDS: Latanoprost 0.005% Ophth Soln 2.5 ml Bottle EA EYE SCH (21:22)
[2020-12-28] MEDS ORDERED: Vancomycin HCl 1.25 GM in Sodium Chloride 0.9% 250 ML 250 ML IVPB SCH (23:59)
[2020-12-28] MEDS ORDERED: Vancomycin HCl 500 MG in Sodium Chloride 0.9% 100 ML IVPB SCH (23:59)
[2020-12-29] MEDS ORDERED: Vancomycin HCl 750 MG in Sodium Chloride 0.9% 250 ML 250 ML IVPB SCH (01:00)
[2020-12-29] MEDS: Piperacillin/Tazobactam 3.375 GM in Sodium Chloride 0.9% 100 ML IVPB SCH ×4 (03:27→21:06)
[2020-12-29 05:18] LABS: #Eosinphils 0.1 10x3/uL (0.0-0.5); #Monocytes 0.7 10x3/uL (0.0-1.1); #Neutrophils 5.4 10x3/uL (1.5-8.4); %Basophils 0.3 % (0.0-2.0); %Eosinophils 1.4 % (0.0-6.0); %Lymphocytes 11.6 % (18.0-47.0); %Monocytes 9.5 % (0.0-10.0); %Neutrophils 76.8 % (40.0-75.0); Hemoglobin 6.4 g/dL (13.5-17.5); Mean Corpuscular HGB CONC 31.1 g/dL (32.0-36.0); Mean Corpuscular Hemoglobin 27.8 pg (27.0-33.0); Mean Corpuscular Volume 89.6 fl (81.2-95.1); Mean Platelet Volume 8.6 fl (7.4-10.4); Platelet Count 254 10x3/uL (150-450); RBC Distribution Width 15.3 % (11.5-14.5); White Blood Cell (WBC) Count 7.1 10x3/uL (3.5-10.5)
[2020-12-29 05:19] LABS: Anion Gap 15 mmol/L (10-20); BUN (Urea Nitrogen) 25 mg/dL (8.4-25.7); Calc. Creatinine Clearance 65 mL/min (70-130); Calcium 8.7 mg/dL (7.8-10.44); Carbon Dioxide 19 mmol/L (23-31); Chloride 109 mmol/L (98-107); Glucose 84 mg/dL (83-110); Potassium 3.5 mmol/L (3.5-5.1); Sodium 139 mmol/L (136-145)
[2020-12-29] MEDS ORDERED: Lorazepam 2 MG/ML VIAL SLOW IVP SCH (06:30)
[2020-12-29] MEDS: Brimonidine Tartrate 0.2% Ophth Soln 5 ml Bottle EA EYE SCH ×2 (08:56→21:12)
[2020-12-29] MEDS: Enoxaparin Sodium 80 MG/0.8 ML SYRINGE SC SCH ×3 (08:56→21:13)
[2020-12-29] MEDS: Famotidine/PF 20 mg/2ml Vial SLOW IVP SCH ×2 (08:56→21:09)
[2020-12-29] MEDS: Timolol 0.5% Ophth Soln 5 ml Bottle EA EYE SCH ×2 (08:56→21:12)
[2020-12-29] MEDS: Lorazepam 2 MG/ML VIAL SLOW IVP PRN ×2 (13:14→19:26)
[2020-12-29] MEDS ORDERED: Sterile Water 10 ML VIAL FS PRN (19:55)
[2020-12-29] MEDS ORDERED: Ziprasidone 20 MG VIAL IM SCH (20:00)
[2020-12-29] MEDS ORDERED: Sterile Water 10 ML ONE (20:01)
[2020-12-29] MEDS: Latanoprost 0.005% Ophth Soln 2.5 ml Bottle EA EYE SCH (21:12)
[2020-12-30] MEDS: Vancomycin HCl 1 GM in Sodium Chloride 0.9% 250 ML 250 ML IVPB SCH ×2 (01:06→14:00)
[2020-12-30] MEDS: Piperacillin/Tazobactam 3.375 GM in Sodium Chloride 0.9% 100 ML IVPB SCH ×2 (03:47→14:00)
[2020-12-30 05:41] LABS: #Eosinphils 0.2 10x3/uL (0.0-0.5); #Monocytes 0.7 10x3/uL (0.0-1.1); #Neutrophils 4.8 10x3/uL (1.5-8.4); %Basophils 0.5 % (0.0-2.0); %Eosinophils 2.4 % (0.0-6.0); %Lymphocytes 14.5 % (18.0-47.0); %Monocytes 10.4 % (0.0-10.0); Hemoglobin 8.3 g/dL (13.5-17.5); Mean Corpuscular HGB CONC 31.7 g/dL (32.0-36.0); Mean Corpuscular Hemoglobin 28.6 pg (27.0-33.0); Mean Corpuscular Volume 90.3 fl (81.2-95.1); Mean Platelet Volume 8.6 fl (7.4-10.4); Platelet Count 304 10x3/uL (150-450); RBC Distribution Width 15.1 % (11.5-14.5); White Blood Cell (WBC) Count 6.6 10x3/uL (3.5-10.5)
[2020-12-30 05:42] LABS: Anion Gap 14 mmol/L (10-20); BUN (Urea Nitrogen) 20 mg/dL (8.4-25.7); Calc. Creatinine Clearance 76 mL/min (70-130); Calcium 9.2 mg/dL (7.8-10.44); Carbon Dioxide 19 mmol/L (23-31); Chloride 109 mmol/L (98-107); Glucose 68 mg/dL (83-110); Potassium 3.3 mmol/L (3.5-5.1); Sodium 139 mmol/L (136-145)
[2020-12-30] MEDS ORDERED: Potassium Chloride 20 MEQ TAB PO SCH (07:45)
[2020-12-30] MEDS: Brimonidine Tartrate 0.2% Ophth Soln 5 ml Bottle EA EYE SCH (08:32)
[2020-12-30] MEDS: Famotidine/PF 20 mg/2ml Vial SLOW IVP SCH (08:32)
[2020-12-30] MEDS: Timolol 0.5% Ophth Soln 5 ml Bottle EA EYE SCH (08:32)
[2020-12-30] MEDS: Enoxaparin Sodium 80 MG/0.8 ML SYRINGE SC SCH (08:33)
[2020-12-30 23:39] VITALS: BP 177/84; TEMP 98.8
== END 2020-12-30 20:35 | disposition hospice, inpatient (51) | DRG 871 ==
LOC: CSHERS 19:08 → CSHERHOLD 22:02 → UNDOADMIN 12-28 00:29 → CSHTELE 12-28 10:14
PROVIDERS: ADMIT Student in an Organized Health Care Education/Training Program; ATTEND Family Medicine
DX: A41.9 Sepsis, unspecified organism (principal); J96.01 Acute respiratory failure with hypoxia; J69.0 Pneumonitis due to inhalation of food and vomit; E87.2 Acidosis; I48.20 Chronic atrial fibrillation, unspecified; N17.9 Acute kidney failure, unspecified; F03.91 Unspecified dementia, unspecified severity, with behavioral disturbance; I69.951 Hemiplegia and hemiparesis following unspecified cerebrovascular disease affecting right dominant side; Z66 Do not resuscitate; Z20.822 Contact with and (suspected) exposure to COVID-19; Z51.5 Encounter for palliative care; E11.22 Type 2 diabetes mellitus with diabetic chronic kidney disease; I12.9 Hypertensive chronic kidney disease with stage 1 through stage 4 chronic kidney disease, or unspecified chronic kidney disease; N18.2 Chronic kidney disease, stage 2 (mild); R65.20 Severe sepsis without septic shock; E78.2 Mixed hyperlipidemia; E11.65 Type 2 diabetes mellitus with hyperglycemia; H40.9 Unspecified glaucoma; D63.8 Anemia in other chronic diseases classified elsewhere; R13.12 Dysphagia, oropharyngeal phase; D63.1 Anemia in chronic kidney disease; Z79.01 Long term (current) use of anticoagulants; Z95.0 Presence of cardiac pacemaker; Z74.01 Bed confinement status; Z79.84 Long term (current) use of oral hypoglycemic drugs; Z79.899 Other long term (current) drug therapy
CPT/HCPCS: 0240U; 36415; 36416; 36430; 71045; 71250; 80048; 80053; 83605; 83880; 84145; 84484; 85025; 86850; 86900; 86901; 87040; 93005; 94640; 94760; 96365; J0696; J1650; J2060; J2543; J3370; J3486; J3490; J7050; J7620; P9016; S0028